=== PATIENT | female | born 2000 | race Caucasian/White ===

== ENCOUNTER 2018-06-25 01:34 | Emergency (ER) | payer BC ==
--- NOTE | 2018-06-25 02:51 | EDPHY ---
H & P Stated Complaint: Lac onL palm Time Seen by Provider: 06/25/18 01:53 HPI/ROS: Chief Complaint: Hand laceration HPI: 17-year-old woman sustained a laceration in her left hand when a knife she was using to open a wine bottle slipped. This happened about 30 min prior to arrival. She denies other injuries. She does admit to drinking some alcohol tonight. She is up-to-date in her tetanus. ROS: 10 systems were reviewed and were negative except those elements noted in the HPI. PMH: Denies Social History: No smoking, no alcohol, no recreational drug use Family History: non-contributory Physical Exam: Gen: Awake, Alert, No Distress Left hand: Patient has a 3 cm laceration at the base of the left small finger. Normal flexion extension strength. Sensations intact. Capillary refills less than 2 sec. Skin: no rash Neuro: CN II-XII intact, Sensation grossly intact, Strength 5/5 in bilateral upper and lower extremities - Personal History LMP (Females 10-55): 1-7 Days Ago Current Tetanus/Diphtheria Vaccine: Yes Current Tetanus Diphtheria and Acellular Pertussis (TDAP): Yes - Medical/Surgical History Hx Asthma: No Hx Chronic Respiratory Disease: No Hx Diabetes: No Hx Cardiac Disease: No Hx Renal Disease: No Hx Cirrhosis: No Hx Alcoholism: No Hx HIV/AIDS: No Hx Splenectomy or Spleen Trauma: No Other PMH: anxiety - Social History Smoking Status: Never smoked Constitutional: Initial Vital Signs Temperature (C) 36.7 C 06/25/18 01:37 Heart Rate 72 06/25/18 01:37 Respiratory Rate 16 06/25/18 01:37 Blood Pressure 112/84 H 06/25/18 01:37 O2 Sat (%) 97 06/25/18 01:37 O2 Delivery Mode Room Air Allergies/Adverse Reactions: No Known Allergies Allergy (Unverified 06/25/18 01:36) Home Medications: Medication Instructions Recorded Adderall 10 MG (*) 06/25/18 Xanax 06/25/18 Zoloft 25mg (*) 06/25/18 Medical Decision Making Procedures: Procedure: Laceration repair. Verbal consent was obtained from the patient. The 3 cm laceration on the left hand was anesthetized in the usual fashion. The wound was irrigated, draped and explored to its base with a gloved finger. There were no deep structures involved. No tendon injury was identified. The wound was repaired with 7, 5-0 Ethilon simple interrupted sutures. The wound repair was uncomplicated. The procedure was performed by myself. Departure - Departure Disposition: Home, Routine, Self-Care Clinical Impression: Hand laceration Condition: Good Instructions: Care For Your Stitches (ED), Laceration (ED) Additional Instructions: Sutures need to be removed in 10 days. Return to the emergency department for redness, discharge from the wound, increasing pain, fevers, or any other concerns. Referrals: SHARON Spears,. [Clinic] - As per Instructions
[2018-06-25 03:08] VITALS: BP 118/84
== END 2018-07-06 18:37 | disposition home or self-care (01) ==
PROC: 0HQGXZZ Repair Left Hand Skin, External Approach (ICD-10-PCS; principal; 2018-06-25)
DX: S61.412A Laceration without foreign body of left hand, initial encounter (principal); W26.0XXA Contact with knife, initial encounter; Y93.89 Activity, other specified